=== PATIENT | male | born 2000 | race Caucasian/White ===

== ENCOUNTER 2020-07-30 17:16 | Emergency (ER) | payer OTHER | END 2020-07-30 18:31 | disposition home or self-care (01) | LOC: JVIRT 17:16 | DX: Z20.822 Contact with and (suspected) exposure to COVID-19 (principal) | CPT/HCPCS: G2012-GT ==

== ENCOUNTER 2020-07-31 11:00 | Emergency (ER) | payer OTHER | END 2020-07-31 11:56 | disposition home or self-care (01) | LOC: JVIRT 11:00 | DX: Z20.822 Contact with and (suspected) exposure to COVID-19 (principal) | CPT/HCPCS: C9803; G2251-GT; U0003 ==

== ENCOUNTER 2020-08-06 12:43 | Emergency (ER) | payer OTHER | END 2020-08-06 13:19 | disposition home or self-care (01) | LOC: JVIRT 12:43 | DX: Z20.822 Contact with and (suspected) exposure to COVID-19 (principal) | CPT/HCPCS: C9803; G2251-GT; U0003 ==